=== PATIENT | female | born 1965 | race Native Hawaiian/Other Pacific Islander ===

== ENCOUNTER 2018-04-26 08:37 | Observation (INO) ==
[2018-04-26] MEDS ORDERED: Morphine Sulfate Inj 2 MG/ML Vial IV.PUSH ONE (09:07)
--- NOTE | 2018-04-26 09:07 | ED ---
HPI General Chief Complaint: Back Pain/Injury Stated Complaint: Back Pain Time Seen by Provider: 04/26/18 08:52 Source: patient and EMS Mode of arrival: EMS Limitations: physical limitation History of Present Illness HPI Narrative: 52-year-old female complains low back pain. Patient states that she started having low back pain 2 days ago. Patient states that the pain is severe pain sharp pain localized to her low back area. Patient denies any pain radiation. Patient states that the pain is worse with movement. Patient denies any recent injury to her low back area. Patient denies any saddle anesthesia. Patient denies any focal weakness or numbness of the extremity. Patient denies any urinary or bowel incontinence. Patient has history of chronic neck pain that she has been seen by chiropractor. Patient's not sure she ever had imaging study of the neck area. Patient states that the pain radiates from the neck down the left arm. Patient states that she has neck pain and left arm pain for the past year. Patient has history of hypothyroidism and on medication for that. MD Complaint: Reports back pain Onset (ago): day(s) Duration: Reports constant Similar Symptoms Previously: No Location: Reports lumbar spine Severity: severe Quality: Reports sharp Radiation: Reports none Severity scale (1-10): 10 Relieving factors: none Exacerbating factors: movement and sitting upright Context: Reports unknown Associated symptoms: Reports denies other symptoms Related Data Home Medications Medication Instructions Recorded Confirmed levothyroxine 50 mcg PO DAILY 04/26/18 04/26/18 Allergies Allergy/AdvReac Type Severity Reaction Status Date / Time No Known Allergies Allergy Verified 04/26/18 09:00 Review of Systems ROS: all other systems reviewed are negative PMFSH History History Provided By: Patient Medical History Medical History Hypothyroidism (Acute) Surgical History Surgical History No history of previous surgery (Acute) Social History Social History Smoking Status: Never smoker How Often Do You Have a Drink Containing Alcohol: Never Recent Travel in [place] within the Last 8 Weeks: No Recent Out of Country Travel within the Last 8 Weeks: No Immunization History Tetanus Immunization: Unsure Exam Narrative Exam Narrative: GENERAL: Well-nourished, well-developed patient. SKIN: Focused skin assessment warm/dry. HEAD: Normocephalic. EYES: No scleral icterus. No injection or drainage. NECK: Supple, trachea midline. No JVD or lymphadenopathy. Patient has mild to moderate tenderness in palpation paraspinal area cervical spine. No midline tenderness. CARDIOVASCULAR: Regular rate and rhythm without murmurs, gallops, or rubs. RESPIRATORY: Breath sounds equal bilaterally. No accessory muscle use. GASTROINTESTINAL: Abdomen soft, non-tender, nondistended. MUSCULOSKELETAL: No cyanosis, or edema. BACK: Patient has moderate to severe tenderness in palpation lumbar area, without obvious deformity. No CVA tenderness. Negative straight leg raising. Neurologic exam normal. Course Initial Documented Vital Signs Temperature 98.3 F 04/26/18 08:57 Pulse Rate 73 04/26/18 08:57 Respiratory Rate 17 04/26/18 08:57 Blood Pressure 134/77 04/26/18 08:57 Pulse Oximetry 100 04/26/18 08:57 Last Documented Vital Signs Temperature 98.3 F 04/26/18 08:57 Pulse Rate 64 04/26/18 12:15 Respiratory Rate 14 04/26/18 12:15 Blood Pressure 122/70 04/26/18 12:15 Pulse Oximetry 100 04/26/18 12:15 Medical Decision Making MDM Narrative Medical decision making narrative: 52-year-old female with chronic neck pain and severe new onset of low back pain. Morphine 2 mg IV. Zofran 4 mg IV. Medical Screen Exam Complete: Yes Emergency Medical Condition: Yes Differential Diagnosis Differential Diagnosis: Differential diagnosis including strain, fracture, HNP, spinal stenosis. Lab Data Lab results reviewed: Yes I reviewed the patient's lab results. Result diagrams: 04/26/18 09:00 04/26/18 09:00 Lab Results 04/26/18 04/26/18 04/26/18 Range/Units 09:00 09:00 09:00 WBC 5.9 (4.0-11.0) th/mm3 RBC 4.83 (4.00-5.30) mil/mm3 Hgb 13.7 (11.6-15.3) gm/dL Hct 40.8 (35.0-46.0) % MCV 84.5 (80.0-100.0) fL MCH 28.5 (27.0-34.0) pg MCHC 33.7 (32.0-36.0) % RDW 13.2 (11.6-17.2) % Plt Count 205 (150-450) th/mm3 MPV 8.9 (7.0-11.0) fL Neut % (Auto) 65.3 (16.0-70.0) % Lymph % (Auto) 22.9 (9.0-44.0) % [place] % (Auto) 9.0 H (0.0-8.0) % Eos % (Auto) 2.1 (0.0-4.0) % Baso % (Auto) 0.7 (0.0-2.0) % Neut # (Auto) 3.9 (1.8-7.7) th/mm3 Lymph # (Auto) 1.4 (1.0-4.8) th/mm3 [place] # (Auto) 0.5 (0.0-0.9) th/mm3 Eos # (Auto) 0.1 (0.0-0.4) th/mm3 Baso # (Auto) 0.0 (0.0-0.2) th/mm3 WBC Differential . Differential Comment Auto diff final PT 9.4 L (9.8-11.6) sec INR 0.9 Ratio Sodium 144 (136-145) meq/L Potassium 3.8 (3.5-5.1) meq/L Chloride 112 H (98-107) meq/L Carbon Dioxide 27.0 (21.0-32.0) meq/L Anion Gap 5 (5-15) meq/L BUN 16 (7-18) mg/dL Creatinine 0.79 (0.50-1.00) mg/dL Estimated GFR 77 L (>89) mL/min Random Glucose 112 H (74-106) mg/dL Calcium 8.4 L (8.5-10.1) mg/dL Total Bilirubin 0.3 (0.2-1.0) mg/dL AST 20 (15-37) U/L ALT 30 (10-53) U/L Alkaline Phosphatase 81 (45-117) U/L Total Protein 6.9 (6.4-8.2) g/dL Albumin 3.8 (3.4-5.0) g/dL TSH 4.140 H (0.358-3.740) uIU/mL Urine Color (Yellw/Straw) Urine Clarity (Clear) Urine pH (5.0-8.5) Ur Specific [employer] (1.002-1.035) Urine Protein (Neg-Trace) mg/dL Urine Glucose (UA) (Negative) mg/dL Urine Ketones (Negative) mg/dL Urine Occult Blood (Negative) Urine Nitrate (Negative) Urine Bilirubin (Negative) Urine Urobilinogen (Less than 2) mg/dL Ur Leukocyte Esterase (Negative) Urine WBC (0-5) /hpf Ur Squamous Epith Cells (0-5) /hpf Urine Mucus (Occasional) /lpf Micro UA Comment Ur Microscopic Review Urine Culture Comments 04/26/18 Range/Units 09:10 WBC (4.0-11.0) th/mm3 RBC (4.00-5.30) mil/mm3 Hgb (11.6-15.3) gm/dL Hct (35.0-46.0) % MCV (80.0-100.0) fL MCH (27.0-34.0) pg MCHC (32.0-36.0) % RDW (11.6-17.2) % Plt Count (150-450) th/mm3 MPV (7.0-11.0) fL Neut % (Auto) (16.0-70.0) % Lymph % (Auto) (9.0-44.0) % [place] % (Auto) (0.0-8.0) % Eos % (Auto) (0.0-4.0) % Baso % (Auto) (0.0-2.0) % Neut # (Auto) (1.8-7.7) th/mm3 Lymph # (Auto) (1.0-4.8) th/mm3 [place] # (Auto) (0.0-0.9) th/mm3 Eos # (Auto) (0.0-0.4) th/mm3 Baso # (Auto) (0.0-0.2) th/mm3 WBC Differential Differential Comment PT (9.8-11.6) sec INR Ratio Sodium (136-145) meq/L Potassium (3.5-5.1) meq/L Chloride (98-107) meq/L Carbon Dioxide (21.0-32.0) meq/L Anion Gap (5-15) meq/L BUN (7-18) mg/dL Creatinine (0.50-1.00) mg/dL Estimated GFR (>89) mL/min Random Glucose (74-106) mg/dL Calcium (8.5-10.1) mg/dL Total Bilirubin (0.2-1.0) mg/dL AST (15-37) U/L ALT (10-53) U/L Alkaline Phosphatase (45-117) U/L Total Protein (6.4-8.2) g/dL Albumin (3.4-5.0) g/dL TSH (0.358-3.740) uIU/mL Urine Color Colorless (Yellw/Straw) Urine Clarity Clear (Clear) Urine pH 7.0 (5.0-8.5) Ur Specific [employer] [place] 1.008 (1.002-1.035) Urine Protein Negative (Neg-Trace) mg/dL Urine Glucose (UA) Negative (Negative) mg/dL Urine Ketones Negative (Negative) mg/dL Urine Occult Blood Negative (Negative) Urine Nitrate Negative (Negative) Urine Bilirubin Negative (Negative) Urine Urobilinogen Less than 2 (Less than 2) mg/dL Ur Leukocyte Esterase Negative (Negative) Urine WBC Less than 1 (0-5) /hpf Ur Squamous Epith Cells <1 (0-5) /hpf Urine Mucus Few H (Occasional) /lpf Micro UA Comment Cath-culture not ind Ur Microscopic Review Not Reportable Urine Culture Comments Cath-cult not ind Imaging Data Attestation: I personally reviewed and interpreted this imaging study as follows : Radiologist's impression: Cervical Spine MRI 04/26/18 09:00 CONCLUSION: 1. Negative MRI of the cervical spine Lumbar Spine MRI 04/26/18 09:00 CONCLUSION: 1. Small central to right-sided disc protrusion as described above with minimal encroachment on the right L5 root. The L4 root appears to be spared. Thoracic Spine MRI 04/26/18 09:00 CONCLUSION: 1. Negative MRI of the thoracic spine Discharge Plan Discharge Disposition Patient Disposition: ED Admit(ED Internal Use Only) Discharge Details Diagnosis: Intractable back pain Physicians Team ED Provider: Obie Drake Primary Care Provider: UNKNOWN, Rxs /Orders / Referrals /Forms Prescriptions: No Action levothyroxine 50 mcg Capsule 50 mcg PO DAILY RF: 0 Discharge Interventions Interventions: Vital Signs Last Done: 04/26/18 12:15 Status ED Status: With Doctor
[2018-04-26 09:56] LABS: Baso % (Auto) 0.7 % (0.0-2.0); Eos # (Auto) 0.1 th/mm3 (0.0-0.4); Eos % (Auto) 2.1 % (0.0-4.0); Hematocrit 40.8 % (35.0-46.0); Hemoglobin 13.7 gm/dL (11.6-15.3); Lymph # (Auto) 1.4 th/mm3 (1.0-4.8); Lymph % (Auto) 22.9 % (9.0-44.0); Mean Corpuscular HGB Conc 33.7 % (32.0-36.0); Mean Corpuscular Hemoglobin 28.5 pg (27.0-34.0); Mean Corpuscular Volume 84.5 fL (80.0-100.0); Mean Platelet Volume 8.9 fL (7.0-11.0); Mono # (Auto) 0.5 th/mm3 (0.0-0.9); Neut # (Auto) 3.9 th/mm3 (1.8-7.7); Neut % (Auto) 65.3 % (16.0-70.0); Platelet Count 205 th/mm3 (150-450); Red Blood Count 4.83 mil/mm3 (4.00-5.30); Red Cell Distribution Width 13.2 % (11.6-17.2); White Blood Count 5.9 th/mm3 (4.0-11.0)
[2018-04-26 09:58] LABS: INR 0.9 Ratio; Prothrombin Time 9.4 sec (9.8-11.6)
[2018-04-26 10:00] LABS: Bilirubin,Urine Negative (Negative); Clarity,Urine Clear (Clear); Color,Urine Colorless (Yellw/Straw); Glucose,Urine (UA) Negative (Negative); Leukocyte Esterase,Urine Negative (Negative); Mucus,Urine Few /lpf (Occasional); Nitrite,Urine Negative (Negative); Specific Gravity,Urine 1.008 (1.002-1.035); Squamous Epithelial Cell,Urine <1 /hpf (0-5)
[2018-04-26 10:05] LABS: Alanine Aminotransferase 30 U/L (10-53); Albumin 3.8 g/dL (3.4-5.0); Anion Gap 5 meq/L (5-15); Aspartate Aminotransferase 20 U/L (15-37); Blood Urea Nitrogen 16 mg/dL (7-18); Calcium 8.4 mg/dL (8.5-10.1); Chloride 112 meq/L (98-107); Glomerular Filtration Rate 77 mL/min (>89); Glucose,Random 112 mg/dL (74-106); Potassium 3.8 meq/L (3.5-5.1); Sodium 144 meq/L (136-145)
[2018-04-26 10:15] LABS: Alkaline Phosphatase 81 U/L (45-117); Total Protein 6.9 g/dL (6.4-8.2)
--- NOTE | 2018-04-26 12:35 | MR ---
EXAM DATE: 04/26/2018 12:15 PM EST AGE/SEX: 52 years / Female INDICATIONS: Radiculopathy. Back pain for the last few days. CLINICAL DATA: This is the patient's initial encounter. Patient reports that signs and symptoms have been present for 3 days and indicates a pain score of 8/10. MEDICAL/SURGICAL HISTORY: Hypothyroidism. None. [place] [facility] [place]/26/2018. . TECHNIQUE: Multiplanar, multisequence MRI of the thoracic spine was performed. FINDINGS: Vertebrae: Normal vertebral body height. Homogeneous marrow signal. Alignment: Normal. Cord: Normal position and configuration. T1-T2: The thecal sac has a normal diameter. No evidence of disc bulge or protrusion. T2-T3: The thecal sac has a normal diameter. No evidence of disc bulge or protrusion. T3-T4: The thecal sac has a normal diameter. No evidence of disc bulge or protrusion. T4-T5: The thecal sac has a normal diameter. No evidence of disc bulge or protrusion. T5-T6: The thecal sac has a normal diameter. No evidence of disc bulge or protrusion. T6-T7: The thecal sac has a normal diameter. No evidence of disc bulge or protrusion. T7-T8: The thecal sac has a normal diameter. No evidence of disc bulge or protrusion. T8-T9: The thecal sac has a normal diameter. No evidence of disc bulge or protrusion. T9-T10: The thecal sac has a normal diameter. No evidence of disc bulge or protrusion. T10-T11: The thecal sac has a normal diameter. No evidence of disc bulge or protrusion. T11-T12: The thecal sac has a normal diameter. No evidence of disc bulge or protrusion. T12-L1: The thecal sac has a normal diameter. No evidence of disc bulge or protrusion. CONCLUSION: 1. Negative MRI of the thoracic spine Electronically signed by: Lucas Jamison MD Board Certified Radiologist 04/26/2018 12:34 PM EST
--- NOTE | 2018-04-26 12:36 | MR ---
EXAM DATE: 04/26/2018 12:23 PM EST AGE/SEX: 52 years / Female INDICATIONS: Radiculopathy. Back pain for a few days. CLINICAL DATA: This is the patient's initial encounter. Patient reports that signs and symptoms have been present for 2 days and indicates a pain score of 8/10. MEDICAL/SURGICAL HISTORY: Hypothyroidism. None. COMPARISON: [facility] [place], [place] THORACIC SPINE W/O CONTRAST, 04/26/2018. . TECHNIQUE: Multiplanar, multisequence MRI examination of the cervical spine was performed without co ntrast. FINDINGS: Vertebrae: Normal vertebral body height. Homogeneous marrow signal. Alignment: Normal. Cord: Normal configuration and signal. Post Fossa: The cerebellar tonsils are normal in position. C2-C3: The thecal sac has a normal configuration. There is no evidence of disc herniation or spinal canal stenosis. The neural foramina are patent bilaterally. C3-C4: The thecal sac has a normal configuration. There is no evidence of disc herniation or spinal canal stenosis. The neural foramina are patent bilaterally. C4-C5: The thecal sac has a normal configuration. There is no evidence of disc herniation or spinal canal stenosis. The neural foramina are patent bilaterally. C5-C6: The thecal sac has a normal configuration. There is no evidence of disc herniation or spinal canal stenosis. The neural foramina are patent bilaterally. C6-C7: The thecal sac has a normal configuration. There is no evidence of disc herniation or spinal canal stenosis. The neural foramina are patent bilaterally. C7-T1: No epidural impressions seen. CONCLUSION: 1. Negative MRI of the cervical spine Electronically signed by: Lucas Jamison MD Board Certified Radiologist 04/26/2018 12:35 PM EST
--- NOTE | 2018-04-26 13:18 | MR ---
EXAM DATE: 04/26/2018 12:44 PM EST AGE/SEX: 52 years / Female INDICATIONS: Radiculopathy. Back pain for the last few days. CLINICAL DATA: This is the patient's initial encounter. Patient reports that signs and symptoms have been present for 3 days and indicates a pain score of 8/10. MEDICAL/SURGICAL HISTORY: Hypothyroidism. None. COMPARISON: No prior exams available for comparison. TECHNIQUE: Multiplanar, multisequence MRI of the lumbar spine was performed without contrast. Patie nt was scanned in a sitting position; neutral, flexion, and extension scans were performed in the sa gittal plane. FINDINGS: Vertebra: Homogeneous signal. Normal alignment. Conus: Normal level and configuration. T12-L1: The thecal sac has a normal diameter. No evidence of disc bulge or protrusion. The neural foramina are patent bilaterally. L1-L2: The thecal sac has a normal diameter. No evidence of disc bulge or protrusion. The neural foramina are patent bilaterally. L2-L3: The thecal sac has a normal diameter. No evidence of disc bulge or protrusion. The neural foramina are patent bilaterally. L3-L4: The thecal sac has a normal diameter. No evidence of disc bulge or protrusion. The neural foramina are patent bilaterally. L4-L5: There is desiccation of the L4-5 disc with a small central left-sided protrusion impinging o n the anterior thecal space touching the L5 root. This is a small disc protrusion but does have some epidural inflammatory type changes evident. There are mild degenerative changes in the facets. L5-S1: The thecal sac has a normal diameter. No evidence of disc bulge or protrusion. The neural foramina are patent bilaterally. CONCLUSION: 1. Small central to right-sided disc protrusion as described above with minimal encroachment on the right L5 root. The L4 root appears to be spared. Electronically signed by: Lucas Jamison MD Board Certified Radiologist 04/26/2018 1:17 PM EST
[2018-04-26] MEDS ORDERED: Acetaminophen 325 MG Tablet PO PRN (15:03)
--- NOTE | 2018-04-26 15:28 | XR ---
EXAM DATE: 04/26/2018 3:23 PM EST AGE/SEX: 52 years / Female INDICATIONS: Cough, short of breath, back pain. CLINICAL DATA: This is the patient's initial encounter. Patient reports that signs and symptoms have been present for 3 days and indicates a pain score of 6/10. MEDICAL/SURGICAL HISTORY: None. None. COMPARISON: No prior exams available for comparison. FINDINGS: A single AP view of the chest demonstrates the lungs to be symmetrically aerated without evidence of mass, infiltrate or effusion. The cardiomediastinal contours are unremarkable. Osseous structures a re intact. CONCLUSION: No acute intrathoracic disease. Electronically signed by: David Ramirez MD Board Certified Radiologist 04/26/2018 3:26 PM EST
--- NOTE | 2018-04-26 15:48 | P.HPIM ---
History of Present Illness Primary Care Physician: UNKNOWN History of Present Illness: Patient is a pleasant 52-year-old female with history of hypothyroidism who presents to the ER with complaint of acute low back pain. Patient states that she has had episodes of low back pain before, but never this severe. Patient denies any exacerbating factors. Patient denies recent fall or injury. Patient states that the low back pain has become so severe today that she is unable to ambulate. In the ER, MRI was obtained of the cervical, thoracic, and lumbar spine which did not show any acute pathology. Patient admitted to observation status at [facility]. 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 - - Patient denies tobacco, alcohol, or illicit street drugs Allergies: NKDA Diagnosis (1) Intractable back pain: Medications and Allergies Allergies Allergy/AdvReac Type Severity Reaction Status Date / Time No Known Allergies Allergy Verified 04/26/18 09:00 Home Medications Medication Instructions Recorded Confirmed Type levothyroxine 50 mcg PO DAILY 04/26/18 04/26/18 History Active Medications: Active Medications Acetaminophen (Tylenol) 650 mg PO Q4H PRN PRN Reason: Temp > 100.4 Al Hydroxide/Mg Hydroxide (Milk Of Chema Moraes) 30 ml PO Q12H PRN PRN Reason: Mild Constipation Cyclobenzaprine HCl (Flexeril) 5 mg PO Q8H PRN PRN Reason: MUSCLE SPASM Acetaminophen (Ofirmev Inj) 650 mg in 65 mls @ 400 mls/hr IV.SIG Q6H PAM Stop: 04/27/18 10:10 Ketorolac Tromethamine (Toradol Inj) 30 mg IM Q6H PRN PRN Reason: BREAKTHROUGH PAIN Stop: 05/01/18 15:12 Levothyroxine Sodium (Synthroid) 50 mcg PO DAILY@0600 PAM Ondansetron HCl (Zofran Inj) 4 mg IV.PUSH Q6H PRN PRN Reason: NAUSEA OR VOMITING Senna/Docusate Sodium (Sandra-Colace) 1 tab PO BID PAM Sodium Chloride (Ns Flush) 2 ml IV.FLUSH BID PAM Sodium Chloride (Ns Flush) 2 ml IV.FLUSH UNSCH PRN PRN Reason: FLUSH AFTER USING IV ACCESS Tramadol HCl (Ultram) 50 mg PO Q6H PRN PRN Reason: pain 1-10, Physical Exam Vital signs: Last Vital Signs Temp 98.3 F 04/26/18 08:57 Pulse 67 04/26/18 14:49 Resp 18 04/26/18 14:49 BP 145/78 H 04/26/18 14:49 Pulse Ox 100 04/26/18 14:49 Narrative: GENERAL: This is a well-nourished, well-developed patient, in no apparent distress. CARDIOVASCULAR: Regular rate and rhythm without murmurs, gallops, or rubs. RESPIRATORY: Clear to auscultation. Breath sounds equal bilaterally. No wheezes , rales, or rhonchi. GASTROINTESTINAL: Abdomen soft, non-tender, nondistended. Normal active bowel sounds MUSCULOSKELETAL: Upper extremity muscular strength is intact and equal bilaterally. Patient is unable to lift right leg off hospital bed due to pain. Patient had marked pain on internal rotation of right hip. NEURO: Alert & Oriented x4 to person, place, time, situation. Moves all ext x4 Results Labs CBC & Chem 7: 04/26/18 09:00 04/26/18 09:00 Caprini VTE Risk Assessment Caprini VTE Risk Assessment: No/Low Risk (score <= 1) Caprini Risk Assessment Model: Point Value = 1 Point Value = 2 Point Value = 3 Point Value = 5 Age 41-60 Minor surgery BMI > 25 kg/m2 Swollen legs Varicose veins or History of unexplained or recurrent spontaneous Oral contraceptives or hormone replacement Sepsis (< 1 month) Serious lung disease, including pneumonia (< 1 month) Abnormal pulmonary function Acute myocardial infarction Congestive heart failure (< 1 month) History of inflammatory bowel disease Medical patient at bed rest Age 61-74 Arthroscopic surgery Major open surgery (> 45 min) Laparoscopic surgery (> 45 min) Malignancy Confined to bed (> 72 hours) Immobilizing plaster cast Central venous access Age >= 75 History of VTE Family history of VTE Factor V Leiden Prothrombin [id number] Lupus anticoagulant Anticardiolipin antibodies Elevated serum homocysteine Heparin-induced thrombocytopenia Other congenital or acquired thrombophilia Stroke (< 1 month) Elective arthroplasty Hip, pelvis, or leg fracture Acute spinal cord injury (< 1 month) Prophylaxis Regimen: Total Risk Factor Score Risk Level Prophylaxis Regimen 0-1 Low Early ambulation 2 Moderate Order ONE of the following: *Sequential Compression Device (SCD) *Heparin 5000 units SQ BID 3-4 Higher Order ONE of the following medications: *Heparin 5000 units SQ TID *Enoxaparin/Lovenox 40 mg SQ daily (WT < 150 kg, CrCl > 30 mL/min) *Enoxaparin/Lovenox 30 mg SQ daily (WT < 150 kg, CrCl > 10-29 mL/min) *Enoxaparin/Lovenox 30 mg SQ BID (WT < 150 kg, CrCl > 30 mL/min) AND/OR *Sequential Compression Device (SCD) 5 or more Highest Order ONE of the following medications: *Heparin 5000 units SQ TID (Preferred with Epidurals) *Enoxaparin/Lovenox 40 mg SQ daily (WT < 150 kg, CrCl > 30 mL/min) *Enoxaparin/Lovenox 30 mg SQ daily (WT < 150 kg, CrCl > 10-29 mL/min) *Enoxaparin/Lovenox 30 mg SQ BID (WT < 150 kg, CrCl > 30 mL/min) AND *Sequential Compression Device (SCD) Assessment and Plan Assessment (1) Intractable back pain: Code(s): M54.9 - Dorsalgia, unspecified Status: Acute Plan Patient is a pleasant 52-year-old female with history of hypothyroidism who presents to the ER with complaint of acute low back pain. Patient states that she has had episodes of low back pain before, but never this severe. Patient denies any exacerbating factors. Patient denies recent fall or injury. Patient states that the low back pain has become so severe today that she is unable to ambulate. In the ER, MRI was obtained of the cervical, thoracic, and lumbar spine which did not show any acute pathology. 1) intractable low back pain - Patient unable to ambulate - Suspect musculoskeletal etiology - Obtain x-ray of pelvis and right hip to rule out fracture, doubt. - MRI cervical, thoracic, lumbar spine (04/26) --> NO acute pathology - IV tylenol - prn flexeril - prn ultram/toradol - PT to evaluate - k-thermia pad - anticipate d/c to home 04/27/18 2) hypothyroid - continue home levothyroxine
[2018-04-26] MEDS: Acetaminophen Inj 650 MG/65 ML VIAL IV.SIG SCH ×2 (16:44→21:38)
[2018-04-26] MEDS: Senna/Docusate Sodium 8.6/50 MG Tablet PO SCH (21:31)
[2018-04-27] MEDS: Acetaminophen Inj 650 MG/65 ML VIAL IV.SIG SCH ×2 (04:42→09:59)
[2018-04-27] MEDS: Levothyroxine 50 MCG Tablet PO SCH (05:02)
--- NOTE | 2018-04-27 08:19 | P.PNIM ---
Subjective Interval history: Pt reports that she is still having some pain in the posterior right hip/pelvic area but feels that the Flexeril helps more than the pain meds She denies any injury to the hip or any falls She did not start any new workout regimen Physical Exam Vital signs: Last Vital Signs Temp 97.7 F 04/27/18 08:00 Pulse 59 L 04/27/18 08:00 Resp 18 04/27/18 08:00 BP 103/65 04/27/18 08:00 Pulse Ox 99 04/27/18 08:00 Narrative: General: NAD, AAOx3 Chest: CTA Cardiac: Regular Abd: +BS, soft ND/NT Ext: No swelling, pain with internal and external rotation of the RLE Results Labs CBC & Chem 7: 04/26/18 09:00 04/26/18 09:00 Imaging Chest X-Ray 04/26/18 00:00 CONCLUSION: No acute intrathoracic disease. Cervical Spine MRI 04/26/18 09:00 CONCLUSION: 1. Negative MRI of the cervical spine Lumbar Spine MRI 04/26/18 09:00 CONCLUSION: 1. Small central to right-sided disc protrusion as described above with minimal encroachment on the right L5 root. The L4 root appears to be spared. Thoracic Spine MRI 04/26/18 09:00 CONCLUSION: 1. Negative MRI of the thoracic spine Assessment and Plan Assessment (1) Intractable back pain: Code(s): M54.9 - Dorsalgia, unspecified Status: Acute Plan Intractable back pain, possible spasms - Pt is a 52 y/o female with hypothyroidism. She presented to the ED at [facility] [place] on with complaints of intractable back pain and inability to ambulate which began 3 days ago. She denies any injury or fall. She did not initiate any new exercise regimen or exert herself more than usual prior to the onset of symptoms. - Cervical Spine MRI (04/26/18) 1. Negative MRI of the cervical spine - Thoracic Spine MRI (04/26/18) 1. Negative MRI of the thoracic spine - Lumbar Spine MRI (04/26/18) 1. Small central to right-sided disc protrusion as described above with minimal encroachment on the right L5 root. The L4 root appears to be spared. - Pt given Flexeril and this provided more relief than the Ultram or Tylenol - Cont. PRN Flexeril - Check Xray of right hip and pelvis - PT evaluation today - Supportive care - Anticipate d/c later today depending on Xray results Attending Attestation The exam, history, and the medical decision-making described in the above note were completed with the assistance of the mid-level provider. I reviewed and agree with the findings presented. I attest that I had a [id number] encounter with the patient on the same day, and personally performed and documented my assessment and findings in the medical record. Patient examined. Assessment and plan formulated with Joann Richmond PA-C. I agree with the above. Progress Note: Quality VTE Deep Vein Thrombosis/Pulmonary Embolism Present on Admission: No
--- NOTE | 2018-04-27 09:28 | XR ---
EXAM DATE: 04/27/2018 9:25 AM EST AGE/SEX: 52 years / Female INDICATIONS: Right hip pain x 5 days no known injury. CLINICAL DATA: This is the patient's initial encounter. Patient reports that signs and symptoms have been present for 1 day and indicates a pain score of 7/10. MEDICAL/SURGICAL HISTORY: None. None. COMPARISON: No prior exams available for comparison. FINDINGS: Bony structures are intact and in normal alignment. Joints are intact without dislocation or signifi cant arthropathy. Osseous density is normal. Soft tissues are unremarkable. No radiopaque foreign bodies seen. CONCLUSION: Negative examination Electronically signed by: Justen Boateng MD Board Certified Radiologist 04/27/2018 9:27 AM EST
[2018-04-27] MEDS: Senna/Docusate Sodium 8.6/50 MG Tablet PO SCH ×2 (09:59→22:24)
--- NOTE | 2018-04-27 19:54 | ECG ---
Date Performed: 04/26/2018 Time Performed: 22:39:11 PTAGE: 52 years EKG: Sinus rhythm NORMAL ECG NO PREVIOUS TRACING DOCTOR: Casey Guardado Interpretating Date/Time 04/27/2018 19:52:59
[2018-04-28] MEDS: Levothyroxine 50 MCG Tablet PO SCH (05:32)
--- NOTE | 2018-04-28 08:42 | P.PNIM ---
Subjective Interval history: Patient continues to have some back pain reports back pain better with flexeril Patient also has difficulty getting out of bed due to back pain Physical Exam Vital signs: Last Vital Signs Temp 98.5 F 04/28/18 08:00 Pulse 69 04/28/18 08:00 Resp 16 04/28/18 08:00 BP 98/66 L 04/28/18 08:00 Pulse Ox 97 04/28/18 08:00 Narrative: GENERAL: This is a well-nourished, well-developed patient, in no apparent distress. CARDIOVASCULAR: Regular rate and rhythm RESPIRATORY: Clear to auscultation. Breath sounds equal bilaterally. No wheezes , rales, or rhonchi. GASTROINTESTINAL: Abdomen soft, non-tender, nondistended. Normal active bowel sounds MUSCULOSKELETAL: continues to have limited ROM and movement due to pain NEURO: Alert & Oriented x4 to person, place, time, situation. Moves all ext x4 Results Labs CBC & Chem 7: 04/26/18 09:00 04/26/18 09:00 Assessment and Plan Assessment (1) Intractable back pain: Code(s): M54.9 - Dorsalgia, unspecified Status: Acute Plan Patient is a pleasant 52-year-old female with history of hypothyroidism who presents to the ER with complaint of acute low back pain. Patient states that she has had episodes of low back pain before, but never this severe. Patient denies any exacerbating factors. Patient denies recent fall or injury. Patient states that the low back pain has become so severe today that she is unable to ambulate. In the ER, MRI was obtained of the cervical, thoracic, and lumbar spine which did not show any acute pathology. Intractable back pain, possible spasms - Pt is a 52 y/o female with hypothyroidism. [place] [facility] [place] complaints of intractable back pain and inability to ambulate which began 3 days ago. She denies any injury or fall. She did not initiate any new exercise regimen or exert herself more than usual prior to the onset of symptoms. - Cervical Spine MRI (04/26/18) 1. Negative MRI of the cervical spine - Thoracic Spine MRI (04/26/18) 1. Negative MRI of the thoracic spine - Lumbar Spine MRI (04/26/18) 1. Small central to right-sided disc protrusion as described above with minimal encroachment on the right L5 root. The L4 root appears to be spared. - Hip X-Ray 04/27/18 Negative examination - Pt given Flexeril and this provided more relief than the Ultram or Tylenol - Cont. PRN Flexeril - Check Xray of right hip and pelvis - PT evaluation today - Supportive care - Discussed with patient DC home with [facility] vs SNF. Patient continues to have difficult getting out of bed without assistance and reports that her is handicap therefore she has no help at home.Hy - Anticipate d/c to SNF later today Hypothyroidism - Continue patient's home Levothyroxine 50 mcg daily - TSH 4.1, patient to follow up with PCP after DC for further monitoring Attending Attestation The exam, history, and the medical decision-making described in the above note were completed with the assistance of the mid-level provider. I reviewed and agree with the findings presented. I attest that I had a [id number] encounter with the patient on the same day, and personally performed and documented my assessment and findings in the medical record. Patient examined. Assessment and plan formulated with Milly Sanchez PA-C. I agree with the above. Progress Note: Quality VTE Deep Vein Thrombosis/Pulmonary Embolism Present on Admission: No
[2018-04-28] MEDS: Senna/Docusate Sodium 8.6/50 MG Tablet PO SCH (09:01)
[2018-04-28 13:38] VITALS: BP 130/72; PULSE 76; RESP 17; TEMP 97.2; O2SAT 99
== END 2018-04-28 14:51 ==
LOC: NEPE 08:37 → NEDA 08:37 → NEPHCDU 15:55
PROVIDERS: ADMIT Hospitalist; ATTEND Hospitalist
CPT/HCPCS: 71010; 71045; 72141; 72146; 72148; 73502; 80053; 81001; 84443; 85025; 85610; 90775; 93005; 96365; 96375; 96376; 97110; 97116; 97162; 99285; G0378; G8987; G8988; J0131; J2270; J2405